=== PATIENT | male | born 1955 | race Two or more races ===

== ENCOUNTER 2019-12-29 05:42 | Inpatient (IN) | payer OTHER ==
[~2019-12-29] VITALS: Ht 165.1 cm; Wt 98.0 kg
[~2019-12-29 05:42] MED LIST: AMLO2.5T4 PO; ATEN25TA PO; ATOR40TA PO; DOCU-141 PO; LISI1TAB29 PO; OMEP20CA15 PO; OXYC5CAP18 PO; RIVA10TA PO; SENN8.6C5 PO; TERA2CAP4 PO
[2019-12-29] MEDS ORDERED: HYDROMORPHONE INJ 2 MG/ML DISP.SYRIN ONE (10:07)
[2019-12-29] MEDS ORDERED: BUPIVACAINE 0.5 % PF 150 MG/30 ML VIAL ONE ×2 (10:08→11:16)
[2019-12-29] MEDS ORDERED: TRANEXAMIC ACID 3,000 MG in SODIUM CHLORIDE IRRIG SOLUTION 70 ML IR ONE (10:30)
[2019-12-29] MEDS ORDERED: BACITRACIN 50000 UNITS/VIAL ONE (10:41)
[2019-12-29] MEDS ORDERED: HYDROMORPHONE 1 MG/1 ML DISP.SYRIN ONE ×2 (12:18→12:26)
[2019-12-29] MEDS ORDERED: TYLENOL 650 MG TABLET PO PRN (13:00)
[2019-12-29] MEDS ORDERED: DULCOLAX 10 MG/SUPP.RECT RC PRN (13:00)
[2019-12-29] MEDS ORDERED: SENOKOT 8.6 MG TABLET PO PRN (13:00)
[2019-12-29] MEDS ORDERED: AMBIEN 5 MG TABLET PO PRN (13:00)
[2019-12-29] MEDS ORDERED: COLACE 250 MG CAPSULE PO PRN (13:00)
[2019-12-29] MEDS ORDERED: HYDROCODONE/APAP 5/325MG 1 EACH TABLET PO PRN (13:00)
[2019-12-29] MEDS ORDERED: ZOFRAN 4mg/2ML IV PRN (13:00)
--- NOTE | 2019-12-29 13:20 | NUR ---
M/S RN NOTES PATIENT RECEIVED FROM SURGERY ALERT AND ORIENTED X4, FAMILY AT BEDSIDE. NO RESPIRATORY DISTRESS NOTED, PAIN TOLERABLE AT THIS TIME WITH 5/10 PAIN LEVEL. NO N/V AT THIS TIME. PATIENT'S VSS, SKIN WARM TO TOUCH, SKIN ASSESSED NO SKIN BREAKDOWN. PATIENT'S LEFT KNEE DRESSING C/D/I, PATIENT'S BELONGINGS ACCOUNTED FOR AND BELONGINGS LIST SIGNED. PATIENT'S NEEDS ATTENDED, NOTIFIED MD FOR ADMISSION ORDERS. CARRIED OUT DR. LESLIE'S ORDERS. BED ON LOWEST LOCKED POSITION, CALL LIGHT WITHIN REACH. WILL CONTINUE TO MONITOR.
[2019-12-29] MEDS: IV D5/0.45 NACL 1,000 ML IV PRN (13:42)
[2019-12-29] MEDS ORDERED: MAG HYDROX/AL HYDROX/SIMETH 30 ML UDC PO PRN (14:30)
[2019-12-29] MEDS ORDERED: MENTHOL/CETYLPYRD (CEPACOL) 1 LOZ LOZENGE MM PRN (14:30)
[2019-12-29] MEDS ORDERED: MAGNESIUM HYDROXIDE 30 ML UDC PO PRN (14:30)
[2019-12-29] MEDS ORDERED: CLONIDINE HCL 0.1 MG TABLET PO PRN (14:30)
[2019-12-29] MEDS ORDERED: ONDANSETRON HCL/PF 4 MG/2 ML VIAL IVP PRN (14:30)
[2019-12-29] MEDS ORDERED: oxyCODONE IR immediate release 5 MG PO PRN (14:30)
[2019-12-29] MEDS ORDERED: NALOXONE HCL 0.4 MG/ML AMPUL IV PRN (14:30)
[2019-12-29] MEDS ORDERED: diphenhydrAMINE HCL 25 MG CAPSULE PO PRN (14:30)
[2019-12-29] MEDS: oxyCODONE IR immediate release 5 MG PO PRN (15:36)
--- NOTE | 2019-12-29 15:40 | NUR ---
M/S RN NOTES PATIENT ASKED FOR PAIN MEDICATION OXYCODONE, PULLED OUT 10MG DOSE BUT PATIENT WANTED OXYCODONE 15MG INSTEAD. RETURNED 10MG OXYCODONE AND TOOK OUT 15MG DOSE FROM [facility].
[2019-12-29 16:00] VITALS: BP 130/47
[2019-12-29] MEDS: DOCUSATE SODIUM 100 MG CAPSULE PO SCH (16:44)
[2019-12-29] MEDS: SENNOSIDES 8.6 MG TABLET PO SCH (17:03)
[2019-12-29] MEDS ORDERED: HYDROMORPHONE 1 MG/1 ML DISP.SYRIN SQ ONE (17:10)
[2019-12-29 17:54] LABS: BASOPHILS % (AUTO) 0.1 % (0.0-2.0); HEMATOCRIT 44 % (39-51); HEMOGLOBIN 14.4 g/dL (13.5-17.5); LYMPHOCYTES # (AUTO) 0.9 /CMM (0.8-4.8); LYMPHOCYTES % (AUTO) 8.9 % (20.0-44.0); MEAN CORPUSCULAR HGB CONC 33 g/dl (31.0-36.0); MEAN CORPUSCULAR VOLUME 91 fL (80-96); MONOCYTES # (AUTO) 0.3 /CMM (0.1-1.30); MONOCYTES % (AUTO) 2.6 % (2.0-12.0); NEUTROPHILS # (AUTO) 9.1 /CMM (1.8-8.9); NEUTROPHILS % (AUTO) 88.4 % (43.0-81.0); PLATELET COUNT (AUTO) 254 /CMM (150-450); RED BLOOD CELL COUNT(AUTO) 4.81 MIL/uL (4.5-6.0); WHITE BLOOD COUNT (AUTO) 10.3 K/uL (4.3-11.0)
[2019-12-29] MEDS: ATENOLOL 25 MG TABLET PO SCH (18:05)
[2019-12-29 18:20] LABS: CALCIUM, SERUM 8.1 mg/dL (8.5-10.1); CREATININE 1.2 mg/dL (0.6-1.3); POTASSIUM 3.4 mmol/L (3.5-5.1)
--- NOTE | 2019-12-29 18:58 | NUR ---
M/S RN NOTES PATIENT AWAKE ALERT AND ORIENTED X4, PATIENT WATCHING TV. PATIENT GIVEN DILAUDID ORDERED FOR PAIN 07/15, WILL ENDORSE TO ONCOMING NURSE FOR PAIN REASSESSMENT. PATIENT'S ANCEF 1G INFUSING ON THE RT HAND, SKIN WARM TO TOUCH. PATIENT'S NEEDS ATTENDED, BED ON LOWEST LOCKED POSITION, CALL LIGHT WITHIN REACH. WILL ENDORSE TO ONCOMING NURSE FOR RYLEE.
[2019-12-29] MEDS: ANCEF 1 G in IV D5W 50 ML IV SCH (19:02)
--- NOTE | 2019-12-29 19:55 | NUR ---
RN OPENING NOTES RECEIVED REPORT FROM DAYSHIFT RN VANNESSA. FOUND Pt AWAKE IN BED, TALKING ON THE PHONE, RESPIRATIONS EVEN AND UNLABORED WITH EQUAL CHEST RISE AND FALL. Pt IS A/OX4, VERBAL, ABLE TO MAKE NEEDS KNOWN. IV ACCESS ON RHAND #20G, IVF D51/2NS @100ML/HR INFUSING WELL. SAFETY MEASURES IN PLACE. BED LOW, LOCKED, HOB ELEVATED, SIDE RAILS UP, CALL LIGHT AND BEDSIDE TABLE WITHIN REACH. BED ALARM ON. WILL CONTINUE TO MONITOR Pt's CONDITION AND SAFETY THROUGHOUT THE NIGHT.
[2019-12-29 20:40] VITALS: BP 140/73
[2019-12-29] MEDS: oxyCODONE HCL SR 20MG TAB.SR.12H PO SCH (21:01)
[2019-12-29] MEDS: PANTOPRAZOLE 40 MG TABLET.DR PO SCH (21:01)
[2019-12-30] MEDS: HYDROMORPHONE 1 MG/1 ML DISP.SYRIN SQ PRN ×4 (00:18→17:24)
[2019-12-30] MEDS: ANCEF 1 G in IV D5W 50 ML IV SCH (02:23)
[2019-12-30] MEDS: IV D5/0.45 NACL 1,000 ML IV PRN (02:33)
[2019-12-30] MEDS: oxyCODONE IR immediate release 5 MG PO PRN ×3 (02:40→20:08)
--- NOTE | 2019-12-30 07:30 | NUR ---
RN OPENING NOTES RECEIVED PATIENT IN BED RESTING. NOT IN ANY FORM OF DISTRESS. NO SOB. DENIED PAIN OR DISCOMFORT AT THIS TIME. IV ACCESS INTACT AND PATENT. KEPT PATIENT SAFE AND COMFORTABLE. BED IN LOW/LOCKED POSITION, SIDERAILS UPX2, CALL LIGHT IN REACH. WILL CONT TO MONITOR ACCORDINGLY.
[2019-12-30 08:00] VITALS: BP 148/81
--- NOTE | 2019-12-30 08:29 | NUR ---
RN CLOSING NOTES NO SIGNIFICANT CHANGES IN Pt's CONDITION. Pt IS RESTING COMFORTABLY IN BED. NO S/S OF ACUTE DISTRESS OR SOB NOTED. ALL NEEDS MET AND ATTENDED TO. SAFETY MEASURES IN PLACE. ENDORSED TO DAYSHIFT RN FOR Pt's RYLEE.
[2019-12-30] MEDS ORDERED: AMLODIPINE BESYLATE 2.5 MG TABLET PO SCH (09:00)
[2019-12-30] MEDS ORDERED: SENNOSIDES 8.6 MG TABLET PO SCH (09:00)
[2019-12-30] MEDS ORDERED: RIVAROXABAN 10 MG TABLET PO SCH (09:00)
[2019-12-30] MEDS ORDERED: Medication Not On Formulary EA (Lisinopril/Hydrochlorothiazide (Lisinopril-Hctz 20-25 Mg PO SCH (09:00)
[2019-12-30] MEDS ORDERED: LISINOPRIL (20MG) 20 MG TABLET PO SCH (09:00)
[2019-12-30] MEDS: TAMSULOSIN 0.4 MG CAP.SR.24H PO SCH (09:29)
[2019-12-30] MEDS: LISINOPRIL (10MG) 10 MG TABLET PO SCH ×2 (09:30→17:21)
[2019-12-30] MEDS: DOCUSATE SODIUM 100 MG CAPSULE PO SCH ×2 (09:31→17:20)
[2019-12-30] MEDS: HYDROCHLOROTHIAZIDE 25 MG TABLET PO SCH (09:31)
[2019-12-30] MEDS: oxyCODONE HCL SR 20MG TAB.SR.12H PO SCH (09:32)
[2019-12-30] MEDS: ASPIRIN 325 MG TABLET PO SCH ×2 (09:34→17:21)
[2019-12-30] MEDS: ATENOLOL 25 MG TABLET PO SCH (09:34)
[2019-12-30] MEDS: AMLODIPINE BESYLATE 2.5 MG TABLET PO SCH (09:35)
[2019-12-30] MEDS: SENNOSIDES 8.6 MG TABLET PO SCH ×2 (09:36→17:21)
[2019-12-30 16:00] VITALS: BP 150/86
[2019-12-30] MEDS ORDERED: ATORVASTATIN 40 MG TABLET PO SCH (18:00)
--- NOTE | 2019-12-30 19:30 | NUR ---
RN CLOSING NOTES PATIENT IN STABLE CONDITION. ALL NEEDS ATTENDED AND PROVIDED. ALL DUE MEDS GIVEN ORDERED. TURNED AND REPOSITIONED PATIENT. KEPT PATIENT SAFE AND COMFORTABLE. BED IN LOW/LOCKED POSITION. SIDERAILS UPX2, CALL LIGHT IN REACH. ENDORSED ACCORDINGLY.
--- NOTE | 2019-12-30 19:55 | NUR ---
RN OPENING NOTES RECEIVED REPORT FROM DAYSHIFT RN RADHA. FOUND Pt AWAKE IN BED, FAMILY VISITING AT BEDSIDE, RESPIRATIONS EVEN AND UNLABORED WITH EQUAL CHEST RISE AND FALL. Pt IS A/OX4, VERBAL, ABLE TO MAKE NEEDS KNOWN. IV ACCESS ON RWRIST #20G, IVF D51/2NS @100ML/HR INFUSING WELL. PER DAYSHIFT REPORT D/C PLANNING TOMORROW IN THE AM FOR THE Pt. Pt WAS S/B PT TODAY, WAS GIVEN THE CPM MACHINE,N WHICH IS AT BEDSIDE. SAFETY MEASURES IN PLACE. BED LOW, LOCKED, HOB ELEVATED, SIDE RAILS UP, CALL LIGHT AND BEDSIDE TABLE WITHIN REACH. BED ALARM ON. WILL CONTINUE TO MONITOR Pt's CONDITION AND SAFETY THROUGHOUT THE NIGHT.
[2019-12-30 20:00] VITALS: BP 142/74
--- NOTE | 2019-12-30 20:08 | NUR ---
RN NOTES Pt WAS C/O 9/10 PAIN ON HIS LEFT KNEE/LEG SX SITE. REQUESTED FOR HIS PRN OXY IR 15MG AT THIS TIME.
[2019-12-30 21:00] VITALS: BP 142/74
[2019-12-30] MEDS: PANTOPRAZOLE 40 MG TABLET.DR PO SCH (21:36)
[2019-12-30] MEDS: oxyCODONE HCL SR 10MG TAB.SR.12H PO SCH (21:39)
[2019-12-30] MEDS ORDERED: TERAZOSIN HCL 1 MG CAPSULE PO SCH (22:00)
[2019-12-30] MEDS ORDERED: ATORVASTATIN 10 MG TABLET PO SCH (22:00)
[2019-12-31] MEDS: HYDROMORPHONE 1 MG/1 ML DISP.SYRIN SQ PRN ×2 (02:07→11:24)
[2019-12-31] MEDS: oxyCODONE IR immediate release 5 MG PO PRN ×2 (03:38→13:36)
--- NOTE | 2019-12-31 06:41 | NUR ---
RN CLOSING NOTES NO SIGNIFICANT CHANGES IN Pt's CONDITION. Pt IS RESTING COMFORTABLY IN BED. NO S/S OF ACUTE DISTRESS OR SOB NOTED DURING THE NIGHT. ALL NEEDS MET AND ATTENDED TO. SAFETY MEASURES IN PLACE. DC PLANNING BACK HOME TODAY. WILL ENDORSE TO DAYSHIFT RN FOR Pt's RYLEE.
--- NOTE | 2019-12-31 07:28 | NUR ---
MS RN OPENING NOTE PATIENT IN BED RESTING COMFORTABLY. PATIENT IN NO ACUTE DISTRESS. NO SOB NOTED. PATIENT BREATHING IS EVEN AND UNLABORED. PATIENT SAFETY PRECAUTIONS IN PLACE. PATIENT BED IS LOCKED AND IN LOWEST POSITION. CALL LIGHT WITHIN REACH. WILL CONTINUE TO MONITOR.
[2019-12-31 08:00] VITALS: BP 140/84
[2019-12-31] MEDS: DOCUSATE SODIUM 100 MG CAPSULE PO SCH (08:54)
[2019-12-31] MEDS: ASPIRIN 325 MG TABLET PO SCH (08:54)
[2019-12-31] MEDS: HYDROCHLOROTHIAZIDE 25 MG TABLET PO SCH (08:55)
[2019-12-31] MEDS: SENNOSIDES 8.6 MG TABLET PO SCH (08:55)
[2019-12-31] MEDS: LISINOPRIL (10MG) 10 MG TABLET PO SCH (08:55)
[2019-12-31] MEDS: AMLODIPINE BESYLATE 2.5 MG TABLET PO SCH (08:55)
[2019-12-31] MEDS: TAMSULOSIN 0.4 MG CAP.SR.24H PO SCH (08:55)
[2019-12-31] MEDS: ATENOLOL 25 MG TABLET PO SCH (08:56)
[2019-12-31] MEDS: oxyCODONE HCL SR 10MG TAB.SR.12H PO SCH (08:56)
[2019-12-31 15:37] VITALS: BP 135/81
--- NOTE | 2019-12-31 16:29 | NUR ---
MS BACK PAD INSPECTOR NOTE PATIENT MEDICALLY STABLE FOR DISCHARGE. PATIENT IN NO ACUTE DISTRESS. NO SOB NOTED. PATIENT BREATHING IS EVEN AND UNLABORED. DC INSTRUCTIONS PROVIDED. PATIENT VERBALIZED UNDERSTANDING. PATIENT IV REMOVED. ID BAND REMOVED. PATIENT SURGICAL DRESSING DRY AND INTACT. MD CHANGED TODAY. MD TO CHANGE ONLY. PATIENT REFUSING TO HAVE SKIN ASSESSMENT. EDUCATED RISKS VS BENEFITS. PATIENT CONTINUED TO REFUSE. PATIENT KEPT CLEAN, DRY AND COMFORTABLE THROUGHOUT SHIFT. BELONGINGS LIST SIGNED AND IN CHART. PATIENT HAS BELONGINGS WITH HIM AND FAMILY. PATIENT NEEDS AND CONCERNS ADDRESSED. PATIENT IN NO PAIN AT THIS TIME. PATIENT GOING BY WHEELCHAIR TO CAR GOING BACK HOME. WALKER PROVIDED. MD AWARE OF DISCHARGE.
== END 2019-12-31 16:25 | disposition home health service (06) | DRG 467 ==
LOC: DS 05:42 → MED 13:21
PROVIDERS: ADMIT Nurse Practitioner Acute Care; ATTEND Internal Medicine
DX: T84.093A Other mechanical complication of internal left knee prosthesis, initial encounter (principal); E87.1 Hypo-osmolality and hyponatremia; M17.12 Unilateral primary osteoarthritis, left knee; K21.9 Gastro-esophageal reflux disease without esophagitis; I10 Essential (primary) hypertension; N40.0 Benign prostatic hyperplasia without lower urinary tract symptoms; Y79.2 Prosthetic and other implants, materials and accessory orthopedic devices associated with adverse incidents; X58.XXXA Exposure to other specified factors, initial encounter; E66.9 Obesity, unspecified; E78.5 Hyperlipidemia, unspecified; G89.4 Chronic pain syndrome; Z87.891 Personal history of nicotine dependence; Z68.35 Body mass index [BMI] 35.0-35.9, adult; E78.00 Pure hypercholesterolemia, unspecified; M65.862 Other synovitis and tenosynovitis, left lower leg
CPT/HCPCS: 36415; 80048-TC; 82962-TC; 85025-TC; 86850-TC; 86921-TC; 87081-TC; 88300-TC; 88304-TC; 88311-TC; 97110-TC; 97116-TC; 97530-TC; 97760-TC; G0378; J0360; J0690; J1100; J1170; J1885; J2405; J2704; J3490; J7060